=== PATIENT | female | born 1950 ===

== ENCOUNTER 2023-10-13 08:06 | Emergency (ER) | payer BC ==
[2023-10-13] MEDS ORDERED: Iopamidol-370 76% 500 ML MDV (1 ML CHARGE) ONE (08:32)
[2023-10-13] MEDS ORDERED: Morphine 4 MG/ML VIAL ONE (09:04)
[2023-10-13 09:57] LABS: #Basophils 0.1 thou/uL (0.0-0.2); #Eosinphils 0.3 thou/uL (0.0-0.7); #Monocytes 0.4 thou/uL (0.11-0.59); #Neutrophils 4.8 thou/uL (1.40-6.50); %Lymphocytes 24.3 % (21.0-51.0); %Monocytes 5.6 % (0.0-10.0); %Neutrophils 64.8 % (42.0-75.0); Hematocrit 45.1 % (36.0-47.0); Hemoglobin 14.3 g/dL (12.0-16.0); Mean Corpuscular HGB CONC 31.7 g/dL (32.0-36.0); Mean Corpuscular Hemoglobin 24.8 pg (27.0-31.0); Mean Corpuscular Volume 78.2 fl (78.0-98.0); Platelet Count 195 10x3/uL (130-400); RBC Distribution Width 15.1 % (11.5-14.5); Red Blood Cell (RBC) Count 5.77 mill/uL (4.20-5.40); White Blood Cell (WBC) Count 7.3 10x3/uL (4.8-10.8)
[2023-10-13 10:31] LABS: CK (CPK) 58 U/L (29-168); CRP (Inflammatory) Less than 0.50 mg/dL (= or < 0.5)
[2023-10-13 10:32] LABS: ALT (SGPT) 11 U/L (8-55); AST (SGOT) 14 U/L (5-34); Alkaline Phosphatase 86 U/L (40-110); Anion Gap 12 mmol/L (10-20); BUN (Urea Nitrogen) 39 mg/dL (9.8-20.1); Bilirubin, Total 1.2 mg/dL (0.2-1.2); Calc. Creatinine Clearance 0 mL/min (70-130); Calcium 9.9 mg/dL (7.8-10.44); Carbon Dioxide 24 mmol/L (23-31); Chloride 103 mmol/L (98-107); Estimated GFR 33; Globulin 3.2 g/dL (2.4-3.5); Glucose 142 mg/dL (83-110); Protein, Total 7.2 g/dL (5.8-8.1); Sodium 136 mmol/L (136-145)
[2023-10-13] MEDS ORDERED: Potassium Chloride 20 MEQ TAB ONE (10:43)
== END 2023-10-13 13:53 | disposition home or self-care (01) ==
LOC: ERS 08:06
DX: S80.12XA Contusion of left lower leg, initial encounter (principal); E11.9 Type 2 diabetes mellitus without complications; I10 Essential (primary) hypertension; J44.9 Chronic obstructive pulmonary disease, unspecified; I48.91 Unspecified atrial fibrillation; Z79.01 Long term (current) use of anticoagulants; Z79.899 Other long term (current) drug therapy; W54.1XXA Struck by dog, initial encounter
CPT/HCPCS: 36415; 80053; 82550; 85025; 86140; 96374; J2270; Q9967

== ENCOUNTER 2023-10-28 07:56 | Outpatient (CLI) | payer BC | END 2023-10-28 07:57 | disposition home or self-care (01) | LOC: ULT 07:56 | PROVIDERS: ATTEND Student in an Organized Health Care Education/Training Program | DX: I82.90 Acute embolism and thrombosis of unspecified vein (principal) ==